=== PATIENT | male | born 1960 | race Caucasian/White ===

== ENCOUNTER 2022-06-27 19:00 | Emergency (ER) | payer BC ==
[2022-06-27] MEDS ORDERED: diphenhydrAMINE 25 MG CAP ONE (21:08)
== END 2022-06-27 21:33 | disposition home or self-care (01) ==
LOC: CSHERS 19:00
DX: B35.4 Tinea corporis (principal); J44.9 Chronic obstructive pulmonary disease, unspecified
CPT/HCPCS: 99282

== ENCOUNTER 2023-09-09 12:40 | Inpatient (IN) | payer OTHER ==
[2023-09-09 14:01] LABS: #Basophils 0.03 10x3/uL (0.0-0.2); #Monocytes 0.67 10x3/uL (0.0-1.1); #Neutrophils 6.66 10x3/uL (1.5-8.4); %Basophils 0.3 % (0.0-2.0); %Eosinophils 3.3 % (0.0-6.0); %Lymphocytes 16.2 % (18.0-47.0); %Monocytes 7.3 % (0.0-10.0); %Neutrophils 72.6 % (40.0-75.0); Hematocrit 35.5 % (38.8-50.0); Hemoglobin 11.7 g/dL (13.5-17.5); Mean Corpuscular Hemoglobin 26.5 pg (27.0-33.0); Mean Corpuscular Volume 80.5 fL (81.2-95.1); Mean Platelet Volume 10.3 fL (7.4-10.4); Platelet Count 176 10x3/uL (150-450); RBC Distribution Width 14.6 % (11.5-14.5); Red Blood Cell (RBC) Count 4.41 10x6/uL (4.32-5.72); White Blood Cell (WBC) Count 9.2 10x3/uL (3.5-10.5)
[2023-09-09 14:15] LABS: ALT (SGPT) 18 U/L (8-55); AST (SGOT) 9 U/L (5-34); Albumin 3.3 g/dL (3.4-4.8); Alkaline Phosphatase 112 U/L (40-110); Anion Gap 11 mmol/L (10-20); BUN (Urea Nitrogen) 9 mg/dL (8.4-25.7); Bilirubin, Total 0.7 mg/dL (0.2-1.2); Calc. Creatinine Clearance 0 mL/min (70-130); Calcium 8.9 mg/dL (7.8-10.44); Carbon Dioxide 28 mmol/L (23-31); Chloride 104 mmol/L (98-107); Estimated GFR 99; Globulin 3.4 g/dL (2.4-3.5); Glucose 100 mg/dL (80-115); Lipase 22 U/L (8-78); Potassium 3.6 mmol/L (3.5-5.1); Protein, Total 6.7 g/dL (5.8-8.1); Sodium 139 mmol/L (136-145)
[2023-09-09 15:26] LABS: Bilirubin Neg (Negative); Blood, Urine 10 (Negative); Clarity Clear (Clear); Glucose, Urine (Dipstick) 250 mg/dL (Negative); Ketone, Urine 5 mg/dL (Negative); Leukocyte 25 (Negative); Nitrite Negative (Negative); Protein, Urine (Dipstick) 30 mg/dl (Neg-Trace)
[2023-09-09 15:50] LABS: Bacteria/HPF 1+ HPF (None Seen); CAUTI Indications for Culture Pelvic or flank pain; Mucous/LPF 1+ LPF (<2+); RBC/HPF 0-3 HPF (0-3); Squamous Epithelial 0-3 HPF (0-3)
[2023-09-09 15:51] LABS: Urine Culture Reflex No No
[2023-09-09 16:29] LABS: Influenza A by NAA Not Detected (NotDetected); Influenza B by NAA Not Detected (NotDetected); SARS-CoV-2 NAA Rapid Test Not Detected (NotDetected)
[2023-09-09] MEDS ORDERED: cefTRIAXone (ROCEPHIN) 1 GM VIAL ONE (17:21)
[2023-09-09] MEDS ORDERED: Azithromycin 500 MG VIAL ONE (17:21)
[2023-09-09] MEDS ORDERED: Acetaminophen 325 MG TAB ONE (17:38)
[2023-09-09] MEDS ORDERED: PROPOFOL 20 ML ONE ×2 (18:45→19:22)
[2023-09-09] MEDS ORDERED: fentaNYL 50 mcg/mL 1 mL Vial ONE (18:46)
[2023-09-09] MEDS ORDERED: ePHEDrine Sulfate 50 MG/10 ML VIAL ONE (18:46)
[2023-09-09] MEDS ORDERED: Senokot S 8.6-50 MG TAB PO PRN (18:47)
[2023-09-09] MEDS ORDERED: Naloxone HCl 0.4 mg/ml Vial ONE (19:33)
[2023-09-09] MEDS ORDERED: Ipratropium/Albuterol 3 ML NEB ONE (19:38)
[2023-09-09 20:45] VITALS: BMI 33.3
[2023-09-09] MEDS: traMADol HCl 50 MG TAB PO PRN (21:24)
[2023-09-09] MEDS: Cyclobenzaprine 10 MG TAB PO PRN (21:24)
[2023-09-09] MEDS: Pantoprazole DR 40 MG TAB PO SCH (21:24)
[2023-09-09] MEDS ORDERED: Acetaminophen 325 MG TAB PO SCH (23:59)
[2023-09-10 04:07] LABS: Anion Gap 10 mmol/L (10-20); BUN (Urea Nitrogen) 9 mg/dL (8.4-25.7); Calc. Creatinine Clearance 154 mL/min (70-130); Calcium 8.5 mg/dL (7.8-10.44); Carbon Dioxide 24 mmol/L (23-31); Chloride 107 mmol/L (98-107); Estimated GFR 102; Glucose 104 mg/dL (80-115); Potassium 3.1 mmol/L (3.5-5.1); Sodium 138 mmol/L (136-145)
[2023-09-10 04:52] LABS: #Basophils 0.02 10x3/uL (0.0-0.2); #Eosinphils 0.45 10x3/uL (0.0-0.5); #Monocytes 0.48 10x3/uL (0.0-1.1); #Neutrophils 2.76 10x3/uL (1.5-8.4); %Basophils 0.4 % (0.0-2.0); %Eosinophils 8.1 % (0.0-6.0); %Lymphocytes 32.5 % (18.0-47.0); %Monocytes 8.7 % (0.0-10.0); %Neutrophils 49.9 % (40.0-75.0); Hematocrit 29.2 % (38.8-50.0); Hemoglobin 9.6 g/dL (13.5-17.5); Mean Corpuscular HGB CONC 32.9 g/dL (32.0-36.0); Mean Corpuscular Hemoglobin 26.7 pg (27.0-33.0); Mean Corpuscular Volume 81.3 fL (81.2-95.1); Platelet Count 129 10x3/uL (150-450); RBC Distribution Width 14.7 % (11.5-14.5); Red Blood Cell (RBC) Count 3.59 10x6/uL (4.32-5.72); White Blood Cell (WBC) Count 5.5 10x3/uL (3.5-10.5)
[2023-09-10] MEDS: Acetaminophen 500 MG TAB PO PRN (09:31)
[2023-09-10 09:46] LABS: Magnesium 1.8 mg/dL (1.6-2.6)
[2023-09-10 09:48] LABS: Iron 20 ug/dL (65-175); Iron Binding Capacity, Total 315 mcg/dL (261-462)
[2023-09-10] MEDS: cefTRIAXone\\ROCEPHIN 1 GM in Sodium Chloride 0.9% 100 ML IVPB SCH (14:47)
[2023-09-10] MEDS: metroNIDAZOLE 500 MG in Premix 1 BAG IVPB SCH (14:47)
[2023-09-10] MEDS ORDERED: Azithromycin 500 MG in Sodium Chloride 0.9% 250 ML 250 ML IVPB SCH (15:00)
[2023-09-10] MEDS: Rosuvastatin 20 MG TAB PO SCH (19:34)
[2023-09-10] MEDS: Cyclobenzaprine 10 MG TAB PO SCH (19:38)
[2023-09-11 04:20] LABS: #Basophils 0.03 10x3/uL (0.0-0.2); #Monocytes 0.44 10x3/uL (0.0-1.1); #Neutrophils 2.78 10x3/uL (1.5-8.4); %Basophils 0.5 % (0.0-2.0); %Eosinophils 10.8 % (0.0-6.0); %Lymphocytes 30.5 % (18.0-47.0); %Monocytes 7.9 % (0.0-10.0); %Neutrophils 50.1 % (40.0-75.0); Hematocrit 31.6 % (38.8-50.0); Hemoglobin 10.2 g/dL (13.5-17.5); Mean Corpuscular HGB CONC 32.3 g/dL (32.0-36.0); Mean Corpuscular Hemoglobin 26.4 pg (27.0-33.0); Mean Corpuscular Volume 81.7 fL (81.2-95.1); Platelet Count 138 10x3/uL (150-450); RBC Distribution Width 14.7 % (11.5-14.5); Red Blood Cell (RBC) Count 3.87 10x6/uL (4.32-5.72); White Blood Cell (WBC) Count 5.6 10x3/uL (3.5-10.5)
[2023-09-11 04:36] LABS: Anion Gap 11 mmol/L (10-20); BUN (Urea Nitrogen) 8 mg/dL (8.4-25.7); Calc. Creatinine Clearance 147 mL/min (70-130); Calcium 8.4 mg/dL (7.8-10.44); Carbon Dioxide 25 mmol/L (23-31); Chloride 108 mmol/L (98-107); Estimated GFR 100; Glucose 98 mg/dL (80-115); Potassium 3.6 mmol/L (3.5-5.1); Sodium 140 mmol/L (136-145)
[2023-09-11 08:07] VITALS: BP 112/63; TEMP 98.4
[2023-09-11] MEDS: Aspirin 81 mg Enteric Coated Tablet PO SCH (08:08)
[2023-09-11] MEDS: Benzocaine/Menthol 1 LOZ LOZ PO SCH (10:25)
[2023-09-11 13:10] LABS: CRP,High Sensitivity (Inhouse) 2.68 mg/dL (< or = 0.5)
== END 2023-09-11 12:47 | disposition home or self-care (01) | DRG 179 ==
LOC: CSHERS 12:40 → CSHTELE 18:09 → OBSVTOIN 09-11 09:52
PROVIDERS: ADMIT Internal Medicine; ATTEND Internal Medicine
PROC: 0DJ08ZZ Inspection of Upper Intestinal Tract, Via Natural or Artificial Opening Endoscopic (ICD-10-PCS; principal; 2023-09-09)
DX: J69.0 Pneumonitis due to inhalation of food and vomit (principal); J44.9 Chronic obstructive pulmonary disease, unspecified; G89.29 Other chronic pain; M54.9 Dorsalgia, unspecified; I10 Essential (primary) hypertension; E78.5 Hyperlipidemia, unspecified; Z79.899 Other long term (current) drug therapy; Z98.890 Other specified postprocedural states; Z90.49 Acquired absence of other specified parts of digestive tract; Z79.82 Long term (current) use of aspirin; F43.10 Post-traumatic stress disorder, unspecified
CPT/HCPCS: 36415; 71045; 71275; 74174; 80048; 80053; 81001; 82728; 83540; 83550; 83605; 83690; 83735; 84145; 85025; 86141; 93005; 96361; 96374; 96375; J0456; J0696; J2310; J2704; J3010; J7620

== ENCOUNTER 2023-12-21 19:55 | Emergency (ER) | payer OTHER ==
[2023-12-21] MEDS ORDERED: Ondansetron PF 4 MG/2 ML Vial ONE (21:14)
[2023-12-21] MEDS ORDERED: Morphine 4 MG/ML VIAL ONE (21:15)
[2023-12-21 21:34] LABS: Bilirubin Neg (Negative); Blood, Urine 250 (Negative); Clarity Cloudy (Clear); Glucose, Urine (Dipstick) Normal (Negative); Ketone, Urine Negative (Negative); Leukocyte 100 (Negative); Nitrite Negative (Negative); Protein, Urine (Dipstick) 500 mg/dl (Neg-Trace); Urobilinogen Normal mg/dL (Less than 2)
[2023-12-21 21:39] LABS: Bacteria/HPF 2+ HPF (None Seen); CAUTI Indications for Culture Pelvic or flank pain; RBC/HPF Greater than 50 HPF (0-3); Squamous Epithelial 0-3 HPF (0-3)
[2023-12-21 21:40] LABS: Urine Culture Reflex No No
[2023-12-21] MEDS ORDERED: Glycopyrrolate 0.2 MG/ML 5 ML SYRINGE SLOW IVP SCH (22:00)
== END 2023-12-21 22:44 | disposition home or self-care (01) ==
LOC: CSHERS 19:55
DX: N39.0 Urinary tract infection, site not specified (principal); N32.89 Other specified disorders of bladder; J44.9 Chronic obstructive pulmonary disease, unspecified; E78.5 Hyperlipidemia, unspecified; I10 Essential (primary) hypertension; Z79.82 Long term (current) use of aspirin; Z79.899 Other long term (current) drug therapy
CPT/HCPCS: 81001; 96374; 96375; J2272; J2405

== ENCOUNTER 2024-01-01 12:54 | Outpatient (CLI) | payer OTHER | END 2024-01-01 12:55 | disposition home or self-care (01) | LOC: CSHULT 12:54 | PROVIDERS: ATTEND Family Medicine | DX: Z93.50 Unspecified cystostomy status (principal); N32.89 Other specified disorders of bladder | CPT/HCPCS: 76705 ==

== ENCOUNTER 2024-02-02 17:45 | Emergency (ER) | payer OTHER ==
[2024-02-02] MEDS ORDERED: Ipratropium/Albuterol 3 ML NEB ONE (19:34)
[2024-02-02 19:49] LABS: Bilirubin Neg (Negative); Blood, Urine 250 (Negative); Clarity Cloudy (Clear); Glucose, Urine (Dipstick) Normal (Negative); Ketone, Urine Negative (Negative); Leukocyte 500 (Negative); Nitrite Negative (Negative); Protein, Urine (Dipstick) 500 mg/dl (Neg-Trace); Specific Gravity, Urine 1.025 (1.005-1.030); Urobilinogen Normal mg/dL (Less than 2)
[2024-02-02 20:01] LABS: Bacteria/HPF 2+ HPF (None Seen); CAUTI Indications for Culture Pelvic or flank pain; Squamous Epithelial 0-3 HPF (0-3); WBC/HPF Greater Than 50 HPF (0-3); Yeast-Hyphae 1+ HPF (None Seen)
[2024-02-02 20:02] LABS: Urine Culture Reflex Yes Yes
[2024-02-02] MEDS ORDERED: Diazepam 5 MG TAB ONE (20:20)
== END 2024-02-02 22:11 | disposition home or self-care (01) ==
LOC: CSHERS 17:45
DX: N39.0 Urinary tract infection, site not specified (principal); J44.1 Chronic obstructive pulmonary disease with (acute) exacerbation; I10 Essential (primary) hypertension; Z79.82 Long term (current) use of aspirin; Z79.899 Other long term (current) drug therapy
CPT/HCPCS: 71046; 81001; 87077; 87086; 94640; 94760; J7620

== ENCOUNTER 2024-02-06 17:43 | Emergency (ER) | payer OTHER ==
[2024-02-06 19:03] LABS: #Basophils 0.03 10x3/uL (0.0-0.2); #Monocytes 0.57 10x3/uL (0.0-1.1); #Neutrophils 4.47 10x3/uL (1.5-8.4); %Basophils 0.4 % (0.0-2.0); %Lymphocytes 28.9 % (18.0-47.0); %Monocytes 7.5 % (0.0-10.0); %Neutrophils 58.8 % (40.0-75.0); Hematocrit 38.4 % (38.8-50.0); Hemoglobin 11.7 g/dL (13.5-17.5); Mean Corpuscular HGB CONC 30.5 g/dL (32.0-36.0); Mean Corpuscular Hemoglobin 23.7 pg (27.0-33.0); Mean Corpuscular Volume 77.9 fL (81.2-95.1); Mean Platelet Volume 9.3 fL (7.4-10.4); Platelet Count 251 10x3/uL (150-450); RBC Distribution Width 14.6 % (11.5-14.5); Red Blood Cell (RBC) Count 4.93 10x6/uL (4.32-5.72); White Blood Cell (WBC) Count 7.6 10x3/uL (3.5-10.5)
[2024-02-06 19:06] LABS: Bilirubin Neg (Negative); Blood, Urine 150 (Negative); Glucose, Urine (Dipstick) Normal (Negative); Ketone, Urine Negative (Negative); Leukocyte 500 (Negative); Nitrite Negative (Negative); Protein, Urine (Dipstick) 500 mg/dl (Neg-Trace); Urobilinogen Normal mg/dL (Less than 2)
[2024-02-06] MEDS ORDERED: Morphine 4 MG/ML VIAL ONE (19:11)
[2024-02-06] MEDS ORDERED: Ampicillin/Sulbactam 3 GM in Sodium Chloride 0.9% 100 ML IVPB SCH (19:15)
[2024-02-06 19:19] LABS: ALT (SGPT) 12 U/L (8-55); AST (SGOT) 8 U/L (5-34); Albumin 3.6 g/dL (3.4-4.8); Alkaline Phosphatase 134 U/L (40-110); Anion Gap 14 mmol/L (10-20); BUN (Urea Nitrogen) 13 mg/dL (8.4-25.7); Bilirubin, Total 0.4 mg/dL (0.2-1.2); Calc. Creatinine Clearance 0 mL/min (70-130); Carbon Dioxide 22 mmol/L (23-31); Chloride 105 mmol/L (98-107); Estimated GFR 71; Glucose 104 mg/dL (80-115); Potassium 3.9 mmol/L (3.5-5.1); Protein, Total 7.6 g/dL (5.8-8.1); Sodium 137 mmol/L (136-145)
[2024-02-06 19:21] LABS: Clarity Turbid (Clear)
[2024-02-06 19:23] LABS: Bacteria/HPF 2+ HPF (None Seen); CAUTI Indications for Culture Fever or rigors; Squamous Epithelial 0-3 HPF (0-3); WBC/HPF Greater Than 50 HPF (0-3)
[2024-02-06 19:24] LABS: Yeast-Budding 1+ HPF (None Seen)
[2024-02-06 19:25] LABS: Urine Culture Reflex Yes Yes
[2024-02-06 19:38] LABS: Bilirubin Neg (Negative); Blood, Urine 150 (Negative); Glucose, Urine (Dipstick) Normal (Negative); Ketone, Urine Negative (Negative); Leukocyte 500 (Negative); Nitrite Negative (Negative); Protein, Urine (Dipstick) 500 mg/dl (Neg-Trace); Urobilinogen Normal mg/dL (Less than 2)
[2024-02-06 19:39] LABS: Clarity Turbid (Clear)
[2024-02-06 19:47] LABS: Bacteria/HPF 2+ HPF (None Seen); CAUTI Indications for Culture Fever or rigors; Squamous Epithelial 0-3 HPF (0-3); WBC/HPF Greater Than 50 HPF (0-3); Yeast-Budding 1+ HPF (None Seen)
[2024-02-06] MEDS ORDERED: LevoFLOXacin 750 mg/D5W 150 ml Premix Bag ONE (21:27)
== END 2024-02-06 21:00 | disposition home or self-care (01) ==
LOC: CSHERS 17:43
DX: N39.0 Urinary tract infection, site not specified (principal); J44.9 Chronic obstructive pulmonary disease, unspecified; I10 Essential (primary) hypertension; K21.9 Gastro-esophageal reflux disease without esophagitis; E78.5 Hyperlipidemia, unspecified; Z79.82 Long term (current) use of aspirin; Z79.899 Other long term (current) drug therapy; Z79.51 Long term (current) use of inhaled steroids
CPT/HCPCS: 36415; 80053; 81001; 83605; 85025; 87040; 87070; 87077; 87086; 87205; 93005; 96365; 96367; 96375; J0295; J1956; J2272

== ENCOUNTER 2024-02-13 02:14 | Inpatient (IN) | payer OTHER ==
[2024-02-13] MEDS ORDERED: Morphine 4 MG/ML VIAL ONE (03:44)
[2024-02-13 03:54] LABS: Bilirubin Neg (Negative); Blood, Urine 250 (Negative); Clarity Cloudy (Clear); Glucose, Urine (Dipstick) Normal (Negative); Ketone, Urine Negative (Negative); Leukocyte 500 (Negative); Nitrite Negative (Negative); Protein, Urine (Dipstick) 100 mg/dl (Neg-Trace); Specific Gravity, Urine 1.025 (1.005-1.030); Urobilinogen Normal mg/dL (Less than 2)
[2024-02-13 03:56] LABS: #Basophils 0.03 10x3/uL (0.0-0.2); #Eosinophils 0.32 10x3/uL (0.0-0.5); #Monocytes 0.58 10x3/uL (0.0-1.1); #Neutrophils 3.31 10x3/uL (1.5-8.4); %Basophils 0.5 % (0.0-2.0); %Eosinophils 5.2 % (0.0-6.0); %Lymphocytes 31.6 % (18.0-47.0); %Monocytes 9.3 % (0.0-10.0); %Neutrophils 53.2 % (40.0-75.0); Hematocrit 36.8 % (38.8-50.0); Hemoglobin 11.1 g/dL (13.5-17.5); Mean Corpuscular HGB CONC 30.2 g/dL (32.0-36.0); Mean Corpuscular Hemoglobin 23.4 pg (27.0-33.0); Mean Corpuscular Volume 77.6 fL (81.2-95.1); Mean Platelet Volume 9.5 fL (7.4-10.4); Platelet Count 212 10x3/uL (150-450); RBC Distribution Width 14.6 % (11.5-14.5); Red Blood Cell (RBC) Count 4.74 10x6/uL (4.32-5.72); White Blood Cell (WBC) Count 6.2 10x3/uL (3.5-10.5)
[2024-02-13 04:10] LABS: Bacteria/HPF 2+ HPF (None Seen); CAUTI Indications for Culture Pelvic or flank pain; Squamous Epithelial 0-3 HPF (0-3); WBC/HPF Greater Than 50 HPF (0-3); Yeast-Budding Rare HPF (None Seen); Yeast-Hyphae 1+ HPF (None Seen)
[2024-02-13 04:12] LABS: Urine Culture Reflex Yes Yes
[2024-02-13 05:03] LABS: ALT (SGPT) 11 U/L (8-55); AST (SGOT) 7 U/L (5-34); Albumin 3.5 g/dL (3.4-4.8); Alkaline Phosphatase 114 U/L (40-110); Anion Gap 15 mmol/L (10-20); BUN (Urea Nitrogen) 15 mg/dL (8.4-25.7); Bilirubin, Total 0.4 mg/dL (0.2-1.2); Calc. Creatinine Clearance 0 mL/min (70-130); Carbon Dioxide 20 mmol/L (23-31); Chloride 107 mmol/L (98-107); Estimated GFR 74; Globulin 3.6 g/dL (2.4-3.5); Glucose 103 mg/dL (80-115); Potassium 3.8 mmol/L (3.5-5.1); Protein, Total 7.1 g/dL (5.8-8.1); Sodium 138 mmol/L (136-145)
[2024-02-13] MEDS ORDERED: cefTRIAXone (ROCEPHIN) 1 GM VIAL ONE (05:41)
[2024-02-13] MEDS ORDERED: Senokot S 8.6-50 MG TAB PO PRN (06:51)
[2024-02-13] MEDS ORDERED: Bisacodyl 5 MG TAB PO PRN (06:51)
[2024-02-13 07:20] VITALS: BMI 32.9
[2024-02-13] MEDS ORDERED: Albuterol 2.5 MG (3 mL) NEB NEB PRN (07:25)
[2024-02-13] MEDS ORDERED: traMADol HCl 50 MG TAB ONE (07:29)
[2024-02-13] MEDS: traMADol HCl 50 MG TAB PO PRN (07:37)
[2024-02-13] MEDS: Sodium Chloride 0.45% 1,000 ML IV SCH (08:25)
[2024-02-13] MEDS: Ampicillin/Sulbactam 3 GM in Sodium Chloride 0.9% 100 ML IVPB SCH (08:32)
[2024-02-13] MEDS: Polyethylene Glycol 3350 17 GM Packet PO SCH (08:34)
[2024-02-13] MEDS: guaiFENesin/DM ER PO SCH (08:34)
[2024-02-13] MEDS: Fluconazole 100 MG TAB PO SCH (08:34)
[2024-02-13] MEDS: Oxybutynin ER 5 MG TAB PO SCH (08:35)
[2024-02-13] MEDS: Pantoprazole DR 40 MG TAB PO SCH (08:35)
[2024-02-13] MEDS: Enoxaparin 40 MG (0.4 mL) SYRINGE SC SCH (09:00)
[2024-02-13] MEDS: Acetaminophen 325 MG TAB PO PRN (15:49)
[2024-02-13] MEDS: Cyclobenzaprine 10 MG TAB PO PRN (15:51)
[2024-02-13] MEDS: oxyCODONE 5 MG TAB PO PRN (15:52)
[2024-02-13] MEDS: FLU (Fluarix Triv) TS24-25(6MOS UP)/PF 45 MCG/0.5 ML Syringe IM ONE (16:48)
[2024-02-14] MEDS: Ampicillin/Sulbactam 3 GM in Sodium Chloride 0.9% 100 ML IVPB SCH (04:20)
[2024-02-14 05:34] LABS: Anion Gap 10 mmol/L (10-20); BUN (Urea Nitrogen) 9 mg/dL (8.4-25.7); Calc. Creatinine Clearance 142 mL/min (70-130); Calcium 8.2 mg/dL (7.8-10.44); Carbon Dioxide 24 mmol/L (23-31); Chloride 108 mmol/L (98-107); Estimated GFR 100; Glucose 91 mg/dL (80-115); Potassium 3.8 mmol/L (3.5-5.1); Sodium 138 mmol/L (136-145)
[2024-02-14 05:53] LABS: #Basophils 0.02 10x3/uL (0.0-0.2); #Eosinophils 0.33 10x3/uL (0.0-0.5); #Monocytes 0.45 10x3/uL (0.0-1.1); %Basophils 0.5 % (0.0-2.0); %Eosinophils 7.7 % (0.0-6.0); %Lymphocytes 41.4 % (18.0-47.0); %Monocytes 10.5 % (0.0-10.0); %Neutrophils 39.7 % (40.0-75.0); Hematocrit 31.8 % (38.8-50.0); Hemoglobin 9.6 g/dL (13.5-17.5); Mean Corpuscular HGB CONC 30.2 g/dL (32.0-36.0); Mean Corpuscular Hemoglobin 23.8 pg (27.0-33.0); Mean Corpuscular Volume 78.7 fL (81.2-95.1); Mean Platelet Volume 9.8 fL (7.4-10.4); Platelet Count 165 10x3/uL (150-450); RBC Distribution Width 14.6 % (11.5-14.5); Red Blood Cell (RBC) Count 4.04 10x6/uL (4.32-5.72); White Blood Cell (WBC) Count 4.3 10x3/uL (3.5-10.5)
[2024-02-15 04:08] LABS: #Basophils 0.03 10x3/uL (0.0-0.2); #Monocytes 0.43 10x3/uL (0.0-1.1); #Neutrophils 2.37 10x3/uL (1.5-8.4); %Basophils 0.6 % (0.0-2.0); %Eosinophils 6.4 % (0.0-6.0); %Lymphocytes 32.8 % (18.0-47.0); %Monocytes 9.2 % (0.0-10.0); %Neutrophils 50.8 % (40.0-75.0); Hematocrit 31.9 % (38.8-50.0); Hemoglobin 9.7 g/dL (13.5-17.5); Mean Corpuscular HGB CONC 30.4 g/dL (32.0-36.0); Mean Corpuscular Hemoglobin 23.6 pg (27.0-33.0); Mean Corpuscular Volume 77.6 fL (81.2-95.1); Mean Platelet Volume 9.2 fL (7.4-10.4); Platelet Count 153 10x3/uL (150-450); RBC Distribution Width 14.5 % (11.5-14.5); Red Blood Cell (RBC) Count 4.11 10x6/uL (4.32-5.72); White Blood Cell (WBC) Count 4.7 10x3/uL (3.5-10.5)
[2024-02-15 04:20] LABS: Anion Gap 11 mmol/L (10-20); BUN (Urea Nitrogen) 9 mg/dL (8.4-25.7); Calc. Creatinine Clearance 132 mL/min (70-130); Calcium 8.4 mg/dL (7.8-10.44); Carbon Dioxide 24 mmol/L (23-31); Chloride 108 mmol/L (98-107); Estimated GFR 98; Glucose 91 mg/dL (80-115); Sodium 139 mmol/L (136-145)
[2024-02-15] MEDS: HYDROcodone/Acetaminophen 10/325 mg Tablet PO PRN (18:12)
[2024-02-16 08:36] LABS: #Basophils 0.02 10x3/uL (0.0-0.2); #Neutrophils 1.81 10x3/uL (1.5-8.4); %Basophils 0.5 % (0.0-2.0); %Eosinophils 5.3 % (0.0-6.0); %Lymphocytes 34.8 % (18.0-47.0); %Monocytes 10.7 % (0.0-10.0); %Neutrophils 48.4 % (40.0-75.0); Anion Gap 13 mmol/L (10-20); BUN (Urea Nitrogen) 9 mg/dL (8.4-25.7); Calc. Creatinine Clearance 126 mL/min (70-130); Calcium 8.2 mg/dL (7.8-10.44); Carbon Dioxide 21 mmol/L (23-31); Chloride 109 mmol/L (98-107); Estimated GFR 93; Glucose 95 mg/dL (80-115); Hematocrit 32.7 % (38.8-50.0); Mean Corpuscular HGB CONC 30.6 g/dL (32.0-36.0); Mean Corpuscular Hemoglobin 23.4 pg (27.0-33.0); Mean Corpuscular Volume 76.6 fL (81.2-95.1); Mean Platelet Volume 9.5 fL (7.4-10.4); Platelet Count 178 10x3/uL (150-450); RBC Distribution Width 14.5 % (11.5-14.5); Red Blood Cell (RBC) Count 4.27 10x6/uL (4.32-5.72); Sodium 139 mmol/L (136-145); White Blood Cell (WBC) Count 3.7 10x3/uL (3.5-10.5)
[2024-02-16] MEDS: Fluconazole 100 MG TAB PO SCH (21:28)
[2024-02-17 04:25] LABS: Anion Gap 12 mmol/L (10-20); BUN (Urea Nitrogen) 9 mg/dL (8.4-25.7); Calc. Creatinine Clearance 137 mL/min (70-130); Calcium 7.9 mg/dL (7.8-10.44); Carbon Dioxide 21 mmol/L (23-31); Chloride 109 mmol/L (98-107); Estimated GFR 99; Glucose 87 mg/dL (80-115); Potassium 3.8 mmol/L (3.5-5.1); Sodium 138 mmol/L (136-145)
[2024-02-17 04:41] LABS: #Basophils 0.03 10x3/uL (0.0-0.2); #Eosinophils 0.26 10x3/uL (0.0-0.5); #Monocytes 0.53 10x3/uL (0.0-1.1); #Neutrophils 1.51 10x3/uL (1.5-8.4); %Basophils 0.7 % (0.0-2.0); %Eosinophils 6.2 % (0.0-6.0); %Lymphocytes 43.9 % (18.0-47.0); %Monocytes 12.7 % (0.0-10.0); %Neutrophils 36.3 % (40.0-75.0); Hematocrit 30.5 % (38.8-50.0); Hemoglobin 9.7 g/dL (13.5-17.5); Mean Corpuscular HGB CONC 31.8 g/dL (32.0-36.0); Mean Corpuscular Hemoglobin 24.8 pg (27.0-33.0); Mean Platelet Volume 9.8 fL (7.4-10.4); Platelet Count 168 10x3/uL (150-450); RBC Distribution Width 14.6 % (11.5-14.5); Red Blood Cell (RBC) Count 3.91 10x6/uL (4.32-5.72); White Blood Cell (WBC) Count 4.2 10x3/uL (3.5-10.5)
[2024-02-17 08:26] VITALS: BP 123/76; TEMP 97.2
[2024-02-17] MEDS: Fluconazole 100 MG TAB PO SCH (08:46)
== END 2024-02-17 11:57 | disposition home or self-care (01) | DRG 700 ==
LOC: CSHERS 02:14 → CSHERHOLD 05:50 → OBSVTOIN 05:51 → CSHTELE 09:42
PROVIDERS: ADMIT Family Medicine; ATTEND Internal Medicine
DX: T83.510A Infection and inflammatory reaction due to cystostomy catheter, initial encounter (principal); J44.9 Chronic obstructive pulmonary disease, unspecified; I10 Essential (primary) hypertension; E78.5 Hyperlipidemia, unspecified; K21.9 Gastro-esophageal reflux disease without esophagitis; F43.10 Post-traumatic stress disorder, unspecified; N32.89 Other specified disorders of bladder; Z88.8 Allergy status to other drugs, medicaments and biological substances; Z79.899 Other long term (current) drug therapy; Z79.82 Long term (current) use of aspirin; Z90.49 Acquired absence of other specified parts of digestive tract; Z98.890 Other specified postprocedural states
CPT/HCPCS: 36415; 71045; 76770; 80048; 80053; 81001; 83605; 83735; 85025; 87070; 87086; 87205; 96374; J0295; J0696; J1650; J2272